=== PATIENT | male | born 1970 | race Two or more races ===

== ENCOUNTER 2023-10-29 09:00 | Outpatient (CLI) | payer OTHER | END 2023-10-29 09:12 | disposition home or self-care (01) | LOC: TOM 09:00 | DX: R10.11 Right upper quadrant pain (principal) ==

== ENCOUNTER 2023-11-04 12:22 | Outpatient (CLI) | payer OTHER | END 2023-11-04 12:29 | disposition home or self-care (01) | LOC: RAD 12:22 | PROVIDERS: ATTEND Internal Medicine Rheumatology | DX: M19.041 Primary osteoarthritis, right hand (principal); M19.042 Primary osteoarthritis, left hand; M17.11 Unilateral primary osteoarthritis, right knee; M17.12 Unilateral primary osteoarthritis, left knee ==